=== PATIENT | male | born 1980 | race Caucasian/White ===

== ENCOUNTER 2017-01-17 12:23 | Emergency (ER) | payer BC ==
--- NOTE | 2017-01-17 15:15 | DIAGNOSTIC IMAGING REPORT ---
PROCEDURE: CT ABDOMEN/PELVIS W/O CONTRAST INDICATION: ABDOMINAL PAIN TECHNIQUE: Noncontrast axial images were obtained of the entire abdomen and pelvis with sagittal and coronal reformations. COMPARISON: None. FINDINGS: ABDOMEN: Lung base are clear. Heart size is normal. Liver, gallbladder, pancreas, spleen, adrenal glands and the left kidney are normal. There is a 3 mm left UVJ calculus but no hydronephrosis. There is a 1.5 mm nonobstructing right renal lower pole calculus. Normal abdominal aorta. Nonspecific bowel gas pattern. PELVIS: Normal appendix. Normal prostate and bladder. No pelvic mass, inflammatory changes or free fluid. Bilateral L4 spondylolysis with grade 1 L4- 5 anterolisthesis. IMPRESSION: 1. 3 mm of left UVJ calculus without hydronephrosis 2. 1.5 ml nonobstructing right renal calculus 3. 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 Results discussed with AMADOU Gallegos All CT scans at this facility use dose modulation, iterative reconstruction, and/or weight-based dosing when appropriate to reduce radiation dose to as low as reasonably achievable.
--- NOTE | 2017-01-17 15:17 | ED CLINICAL REPORT ---
Clinical Report - Physicians/Mid Levels [facility] [address] [place] [address] 01/17/2017 12:24 [id number] Time Seen: 12:46 Jan 17 2017. Arrived- By private vehicle. Historian- patient, family and significant other. HISTORY OF PRESENT ILLNESS Chief Complaint: FLANK PAIN. This started just prior to arrival and is still present. It is described as "pain". Quality not described as sharp and it is described as located in the left abdomen and the left flank. The patient has had nausea. No loss of appetite or vomiting. (patient presents with testicular pain on the left side, radiating to his flank. Reports a history of Reports nausea no emesis. Reports difficulty urinating since the incident. Patient is sexually active, here with his significant other, his . Denies any history of sexually transmitted diseases.). REVIEW OF SYSTEMS No constipation, black stools, pain with urination, urinary frequency or missed periods. No fever, headache, blurred vision, chest pain or difficulty breathing. No chills. He has had difficulty with urination. All systems otherwise negative, except as recorded above. PAST HISTORY Hyperlipidemia. Problems: Contusion. Anxiety Reaction. Bipolar Disorder. Depression. Sprain. Tetanus Status. Immunizations. Additional Surgeries: Right knee. Medications: Ambien Oral. LamoTRIgine Oral. KlonoPIN Oral. LaMICtal Oral 200mg daily. SEROquel Oral 300 mg, at bedtime. Allergies: Penicillins. SOCIAL HISTORY Smoker- current status unknown (vapes). Alcohol use. History of drug use: marijuana. Recently used drugs yesterday. ADDITIONAL NOTES The nursing notes have been reviewed. PHYSICAL EXAM Vital Signs: 01/17/2017 12:41 BP: 145/94. HR: 60. RR: 18. O2 saturation: 100%. Temp: 98.7 F. Pain level now: 9/10. Appearance: Alert. No acute distress. ENT: Ears normal. Neck: Normal inspection. CVS: Normal heart rate and rhythm. Heart sounds normal. Respiratory: No respiratory distress. Breath sounds normal. No decreased air movement. Abdomen: Soft. Mild tenderness in the suprapubic area. No organomegaly. No mass. Back: Normal inspection. No CVA tenderness. : Normal genitalia. Testes descended. No tenderness present or scrotal swelling. (chaperoned with Jonnathan MCGEE). Skin: No rash. Neuro: Oriented X 3. LABS, X-RAYS, AND EKG Abdominal CT: IMPRESSION: 1. 3 mm of left UVJ calculus without hydronephrosis 2. 1.5 ml nonobstructing right renal calculus 3. 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 Results discussed with Kimberly Rolle PAC All CT scans at this facility use dose modulation, iterative reconstruction, and/or weight-based dosing when appropriate to reduce radiation dose to as low as reasonably achievable. Electronically Final signed by:Abdoulaye Alvarado MD 01/17/2017 3:14:33 PM. Laboratory Tests: UA-Culture if indicated: (JENNIFER: 01/17/2017 13:55) ( FlgRcvd 01/17/2017 14:20) Final results Test Result Flag Units (Reference) URINE COLOR YELLOW URINE APPEARANCE SL CLOUDY URINE GLUCOSE NEGATIVE (NEGATIVE) URINE BILIRUBIN NEGATIVE (NEGATIVE) URINE KETONE NEGATIVE (NEGATIVE) URINE SPECIFIC GRAVITY >= 1.030 (1.010-1.030) URINE PH 6.0 (5.0-8.0) URINE PROTEIN 1+ (NEGATIVE) URINE UROBILINOGEN 0.2 EU/dL (0.2-1.0) URINE NITRITE NEGATIVE (NEGATIVE) URINE BLOOD 3+ (NEGATIVE) URINE LEUK ESTERASE TRACE (NEGATIVE) URINE RBC 75-100 rbc/hpf (0-1) URINE WBC 50-75 wbc/hpf (0-1) URINE EPITHELIAL CELLS 5-10 EPI/hpf (0-5) URINE BACTERIA MODERATE (2+ TO 3+) (NONE SEEN) URINE COMMENT CULTURE INDICATED URINE CULTURES ARE SET-UP BASED ON THE FOLLOWING CRITERIA:POSITIVE NITRITEPOSITIVE LEUKOCYTE ESTERASEGREATER THAN 10 WHITE BLOOD CELLSMODERATE (2+) OR GREATER BACTERIA CBC w Diff: (JENNIFER: 01/17/2017 13:00) ( [facility] 01/17/2017 13:27) Final results Test Result Flag Units (Reference) WHITE BLOOD COUNT 8.2 K/uL (4.5-11.5) RED BLOOD COUNT 4.78 M/uL (4.50-5.90) HEMOGLOBIN 14.6 gm/dL (13.5-17.5) HEMATOCRIT 43.0 % (41.0-53.0) MEAN CELL VOLUME 90 fL (80-100) MEAN CORPUSCULAR HGB 31 pg (26-34) MEAN CORPUSCULAR HGB CONC 34 g/dL (31-37) RED CELL DISTRIBUTION WIDTH 12.6 % (11.6-14.8) PLATELET COUNT 256 K/uL (150-400) NEUTROPHIL % 73.8 % (50-75) LYMPH % 18.7 L % (25-40) MONO % 6.3 % (3-14) EOSINOPHIL % 0.9 % (0-4) BASOPHIL % 0.3 % (0-2) CMP: (JENNIFER: 01/17/2017 13:00) ( MsgRcvd 01/17/2017 13:36) Final results Test Result Flag Units (Reference) GLUCOSE 113 H mg/dL (70-110) BUN 18 mg/dL (7-18) CREATININE 1.3 mg/dL (0.6-1.3) Estimated GFR >60 mL/min Estimated GFR- >60 mL/min Note: Persistent reduction over 3 months in eGFR<60 mL/min/1.73 m2 defines CKD. Patients with eGFR values>=60 mL/min/1.73 m2 may also have CKD if evidence ofpersistent proteinuria. Additional information may be foundat www.kidney.org. SODIUM 141 mmol/L (136-145) POTASSIUM 3.9 mmol/L (3.5-5.1) CHLORIDE 103 mmol/L (98-107) CARBON DIOXIDE 29 mmol/L (21-32) CALCIUM 9.2 mg/dL (8.5-10.1) TOTAL PROTEIN 7.7 g/dL (6.4-8.2) ALBUMIN 4.0 g/dL (3.3-5.0) BILIRUBIN, TOTAL 0.7 mg/dL (0.0-1.0) ALKALINE PHOSPHATASE 92 U/L (46-116) AST (SGOT) 20 U/L (15-37) ALT (SGPT) 37 U/L (12-78) . PROGRESS AND PROCEDURES Course of Care: Patient with signs of acute left flank pain, with relief of medication with Toradol, with nausea, hematuri, and bacteuria. Signs of cystitis aas well in setting of small nephrolithiasis. patient afebrile. No CVA tenderness. Abdomen is soft. NO signs of pyelo/ hydro. 01/17/2017 12:48 BP: 135/93. HR: 58. RR: 20. O2 saturation: 100%. Patient is stable. Symptoms better. Patient/family counseled. Disposition: Discharged. Condition: good. CLINICAL IMPRESSION Ureterolithiasis (single stone) in the left ureter. INSTRUCTIONS Drink plenty of fluids. Prescription Medications: Hydrocodone/APAP 7.5mg / 325mg: take 1 orally every 6 hours as needed for pain. Dispense twenty (20). No refill. Zofran (orally disintegrating tablets) 4 mg: take 1 orally every 12 hours for 3 days as needed for nausea Cipro 500 mg: take 1 tab orally every 12 hours for 10 days. Dispense twenty (20). No refills. Substitution is permissible. Flomax 0.4 mg: take 1 orally every 24 hours. Dispense ten (10). No refills. Substitution is permissible. Follow-up: Follow up with a specialist urology: [phone]. Understanding of the discharge instructions verbalized. (Electronically signed by Sadaf Rolle P.A.-C 01/17/2017 15:46) Addenda for RUBINA CORRAL VisitID: [id number] Date: 01/17/2017 01/17/2017 16:13 Clarified order with PA, Dispense 12 Zofran per RX DC (Electronically signed by Jonnathan Olson R.N. - 01/17/2017 16:13)
--- NOTE | 2017-01-17 15:17 | ED NURSING NOTES ---
Clinical Report - Nurses [facility] [address] [place] [address] 01/17/2017 12:24 Patient: RUBINA CORRAL TRIAGE Triage time 12:41. Acuity: LEVEL 3. Chief Complaint: URINARY RETENTION. Alert. No acute distress. SEPSIS SCREEN: Sepsis Screen: negative. Negative (no infection suspected/documented). --12:47 Syeda Thompson R.N. 12:41 01/17/17. BP: 145/94. HR: 60. RR: 18. O2 saturation: 100%. Temp: 98.7 F. Pain level now: 03/26. --12:47 Syeda Thompson R.N. 12:41 01/17/17. BP: 145/94. HR: 60. RR: 18. O2 saturation: 100%. Temp: 98.7 F. Pain level now: 03/26. --12:47 Syeda Thompson R.N. Weight: 88.4 kg stated. Height/Length: 72 inches Per Patient. BMI: 26.5. --12:47 Syeda Thompson R.N. Medications KlonoPIN Oral. LaMICtal Oral 200mg daily. SEROquel Oral 300 mg, at bedtime. --12:43 Syeda Thompson R.N. LamoTRIgine Oral. --12:44 Syeda Thompson R.N. Ambien Oral. --12:44 Syeda Thompson R.N. Medication/allergy information source: the patient. --12:47 Syeda Thompson R.N. Allergies Penicillins. --12:43 Syeda Thompson R.N. History Arrived by private vehicle. Historian: patient and family. Accompanied by family. Primary physician (annabelle). This started today. Onset. (Woke up today, "I felt like being kicked in the balls and back pain" Lt side). He has had testicular pain. ( Unable to urinate, per pt). Treatment HUMAN RESOURCES EXECUTIVE: None. PAST MEDICAL HX: Immunizations: status is unknown. SOCIAL HX: Smoker- current status unknown (vapes). Occasional alcohol use. History of drug use: marijuana. Recently used drugs yesterday. FALL RISK ASSESSMENT: Fall risk assessment completed. No fall risk identified. NUTRITIONAL RISK ASSESSMENT: The nutritional risk assessment revealed no deficiencies. FUNCTIONAL ASSESSMENT: Functional assessment: no impairments noted. LEARNING NEEDS ASSESSMENT: The learning needs assessment revealed no barriers. SKIN INTEGRITY ASSESSMENT: Skin integrity risk assessment completed. No skin integrity risk identified. --12:47 Syeda Thompson R.N. PROBLEMS: Contusion. Anxiety Reaction. Bipolar Disorder. Depression. Sprain. --12:44 Syeda Thompson R.N. ADDITIONAL SURGERIES: Right knee. --12:44 Syeda Thompson R.N. Interventions ID band on patient. To room. --12:47 Syeda Thompson R.N. PHYSICAL ASSESSMENT Ambulatory to room. Patient gowned. GENERAL / NEURO / PSYCH: Alert. Oriented X 4. Appears in pain and anxious. HEENT: Mucous membranes are pink. RESPIRATORY: Respirations not labored. CVS: Capillary refill less than 2 seconds. GI / : Abdominal tenderness in the suprapubic area and lower abdomen. ( unable to void since last night). SKIN: Skin is warm and dry. --12:48 Syeda Thompson R.N. NURSING PROGRESS NOTES Patient gowned. Head of bed elevated. Call light placed in reach. Side rails up x 2. Bed placed in lowest position. Brakes of bed on. Patient ready for evaluation. --12:48 Syeda Thompson R.N. 12:48 01/17/17. BP: 135/93 taken while lying. HR: 58. RR: 20. O2 saturation: 100%. --12:49 Syeda Thompson R.N. 12:55 01/17/2017 Site #1 started via IV in the right antecubital space with an 20g angiocath, with aseptic technique and good blood return; one attempt. Blood drawn: rainbow set. Labeled in the presence of the patient and sent to the lab. Saline lock flushed with saline. --13:43 Syeda Thompson R.N. 12:56 01/17/2017 Started bag #1 1000 mL IV Fluids IV NS (Saline); at 1000 mL/hr over 1 hour(s) via site #1 --13:43 Syeda Thompson R.N. 12:58 01/17/2017 Zofran (Ondansetron HCl) IVP 8 mg given over 1 minute(s) via site #1. Allergies verified and confirmed 5 rights. IV patency established. IV site checked: no pain, redness, or swelling. IV flushed thoroughly pre- and post-medication administration. IVP given by RN. --13:44 Syeda Thompson R.N. 13:00 01/17/2017 Toradol IVP 30 mg given over 1 minute(s) via site #1. Allergies verified and confirmed 5 rights. IV patency established. IV site checked: no pain, redness, or swelling. IV flushed thoroughly pre- and post-medication administration. IVP given by RN. --13:44 Syeda Thompson R.N. 13:29 01/17/17. Utility Locator provided for the genital exam by the physician. --13:29 Jonnathan Olson R.N. 14:02 01/17/2017 IV Fluids IV NS Discontinued: bag #1 infused. Total amount infused: 1000 mL. IV patency established. IV site checked: no pain, redness, or swelling. IV flushed thoroughly. --14:07 Jonnathan Olson R.N. 15:32 01/17/2017 Site #1 removed upon discharge. Catheter intact. Bandaid applied. --15:47 Syeda Thompson R.N. 15:37 01/17/2017 Levofloxacin PO 500 mg given. Allergies verified and confirmed 5 rights. --15:47 Syeda Thompson R.N. DISPOSITION / DISCHARGE 15:48 01/17/17. BP: 122/70. HR: 81. RR: 20. O2 saturation: 100%. Temp: deferred. Pain level now: 07/26. --15:48 Syeda Thompson R.N. 15:48 01/17/17. BP: 122/70. HR: 81. RR: 20. O2 saturation: 100%. Temp: deferred. Pain level now: 07/26. 14:00 01/17/17. BP: 133/69. HR: 63. RR: 18. O2 saturation: 100% on room air. 12:48 01/17/17. BP: 135/93 taken while lying. HR: 58. RR: 20. O2 saturation: 100%. 12:41 01/17/17. BP: 145/94. HR: 60. RR: 18. O2 saturation: 100%. Temp: 98.7 F. Pain level now: 03/26. --15:49 Syeda Thompson R.N. 15:45. Condition at departure: improved. No learning barriers present. Reviewed medication(s) side effects, precautions, dosing and course information. Prescription(s) given to the patient. Patient verbalized understanding. Written instructions provided in Jordanian. The patient was discharged home and accompanied by spouse. He left the Emergency Department ambulatory and via private vehicle. Spouse driving. Medication list reviewed and validated. --15:50 Syeda Thompson R.N. Locked/Released at 01/17/2017 18:30 by Syeda Thompson R.N.
--- NOTE | 2017-01-17 15:17 | ED NURSING NOTES ---
Clinical Report - Nurses [facility] [address] [place] [place] [address] 01/17/2017 12:24 Patient: RUBINA CORRAL TRIAGE Triage time 12:41. Acuity: LEVEL 3. Chief Complaint: URINARY RETENTION. Alert. No acute distress. SEPSIS SCREEN: Sepsis Screen: negative. Negative (no infection suspected/documented). --12:47 Syeda Thompson R.N. 12:41 01/17/17. BP: 145/94. HR: 60. RR: 18. O2 saturation: 100%. Temp: 98.7 F. Pain level now: 03/26. --12:47 Syeda Thompson R.N. 12:41 01/17/17. BP: 145/94. HR: 60. RR: 18. O2 saturation: 100%. Temp: 98.7 F. Pain level now: 03/26. --12:47 Syeda Thompson R.N. Weight: 88.4 kg stated. Height/Length: 72 inches Per Patient. BMI: 26.5. --12:47 Syeda Thompson R.N. Medications KlonoPIN Oral. LaMICtal Oral 200mg daily. SEROquel Oral 300 mg, at bedtime. --12:43 Syeda Thompson R.N. LamoTRIgine Oral. --12:44 Syeda Thompson R.N. Ambien Oral. --12:44 Syeda Thompson R.N. Medication/allergy information source: the patient. --12:47 Syeda Thompson R.N. Allergies Penicillins. --12:43 Syeda Thompson R.N. History Arrived by private vehicle. Historian: patient and family. Accompanied by family. Primary physician (annabelle). This started today. Onset. (Woke up today, "I felt like being kicked in the balls and back pain" Lt side). He has had testicular pain. ( Unable to urinate, per pt). Treatment ALGEBRA TUTOR: None. PAST MEDICAL HX: Immunizations: status is unknown. SOCIAL HX: Smoker- current status unknown (vapes). Occasional alcohol use. History of drug use: marijuana. Recently used drugs yesterday. FALL RISK ASSESSMENT: Fall risk assessment completed. No fall risk identified. NUTRITIONAL RISK ASSESSMENT: The nutritional risk assessment revealed no deficiencies. FUNCTIONAL ASSESSMENT: Functional assessment: no impairments noted. LEARNING NEEDS ASSESSMENT: The learning needs assessment revealed no barriers. SKIN INTEGRITY ASSESSMENT: Skin integrity risk assessment completed. No skin integrity risk identified. --12:47 Syeda Thompson R.N. PROBLEMS: Contusion. Anxiety Reaction. Bipolar Disorder. Depression. Sprain. --12:44 Syeda Thompson R.N. ADDITIONAL SURGERIES: Right knee. --12:44 Syeda Thompson R.N. Interventions ID band on patient. To room. --12:47 Syeda Thompson R.N. PHYSICAL ASSESSMENT Ambulatory to room. Patient gowned. GENERAL / NEURO / PSYCH: Alert. Oriented X 4. Appears in pain and anxious. HEENT: Mucous membranes are pink. RESPIRATORY: Respirations not labored. CVS: Capillary refill less than 2 seconds. GI / : Abdominal tenderness in the suprapubic area and lower abdomen. ( unable to void since last night). SKIN: Skin is warm and dry. --12:48 Syeda Thompson R.N. NURSING PROGRESS NOTES Patient gowned. Head of bed elevated. Call light placed in reach. Side rails up x 2. Bed placed in lowest position. Brakes of bed on. Patient ready for evaluation. --12:48 Syeda Thompson R.N. 12:48 01/17/17. BP: 135/93 taken while lying. HR: 58. RR: 20. O2 saturation: 100%. --12:49 Syeda Thompson R.N. 12:55 01/17/2017 Site #1 started via IV in the right antecubital space with an 20g angiocath, with aseptic technique and good blood return; one attempt. Blood drawn: rainbow set. Labeled in the presence of the patient and sent to the lab. Saline lock flushed with saline. --13:43 Syeda Thompson R.N. 12:56 01/17/2017 Started bag #1 1000 mL IV Fluids IV NS (Saline); at 1000 mL/hr over 1 hour(s) via site #1 --13:43 Syeda Thompson R.N. 12:58 01/17/2017 Zofran (Ondansetron HCl) IVP 8 mg given over 1 minute(s) via site #1. Allergies verified and confirmed 5 rights. IV patency established. IV site checked: no pain, redness, or swelling. IV flushed thoroughly pre- and post-medication administration. IVP given by RN. --13:44 Syeda Thompson R.N. 13:00 01/17/2017 Toradol IVP 30 mg given over 1 minute(s) via site #1. Allergies verified and confirmed 5 rights. IV patency established. IV site checked: no pain, redness, or swelling. IV flushed thoroughly pre- and post-medication administration. IVP given by RN. --13:44 Syeda Thopmson R.N. 13:29 01/17/17. Distribution Dispatcher provided for the genital exam by the physician. --13:29 Jonnathan Olson R.N. 14:02 01/17/2017 IV Fluids IV NS Discontinued: bag #1 infused. Total amount infused: 1000 mL. IV patency established. IV site checked: no pain, redness, or swelling. IV flushed thoroughly. --14:07 Jonnathan Olson R.N. 15:32 01/17/2017 Site #1 removed upon discharge. Catheter intact. Bandaid applied. --15:47 Syeda Thompson R.N. 15:37 01/17/2017 Levofloxacin PO 500 mg given. Allergies verified and confirmed 5 rights. --15:47 Syeda Thompson R.N. DISPOSITION / DISCHARGE 15:48 01/17/17. BP: 122/70. HR: 81. RR: 20. O2 saturation: 100%. Temp: deferred. Pain level now: 07/26. --15:48 Syeda Thompson R.N. 15:48 01/17/17. BP: 122/70. HR: 81. RR: 20. O2 saturation: 100%. Temp: deferred. Pain level now: 07/26. 14:00 01/17/17. BP: 133/69. HR: 63. RR: 18. O2 saturation: 100% on room air. 12:48 01/17/17. BP: 135/93 taken while lying. HR: 58. RR: 20. O2 saturation: 100%. 12:41 01/17/17. BP: 145/94. HR: 60. RR: 18. O2 saturation: 100%. Temp: 98.7 F. Pain level now: 03/26. --15:49 Syeda Thompson R.N. 15:45. Condition at departure: improved. No learning barriers present. Reviewed medication(s) side effects, precautions, dosing and course information. Prescription(s) given to the patient. Patient verbalized understanding. Written instructions provided in [place]. The patient was discharged home and accompanied by spouse. He left the Emergency Department ambulatory and via private vehicle. Spouse driving. Medication list reviewed and validated. --15:50 Syeda Thompson R.N. Locked/Released at 01/17/2017 18:30 by Syeda Thompson R.N.
--- NOTE | 2017-01-17 15:17 | ED ORDER SUMMARY ---
..... Patient: RUBINA CORRAL OrderSheet [facility] VisitID: [id number] [address] [place] [address] 36y, M Registration Date/Time: 01/17/2017 ORDER SHEET Weight: 88.4 kg (stated) Allergies: Penicillins GENERAL ORDERS: CBC w Diff Urgent (12:46 01/17/2017 EKoroleva P.A.-C) (Ack 12:46 PWeiler ER Tech1) (13:44 SRoberts R.N.) CMP Urgent (12:46 01/17/2017 EKoroleva P.A.-C) (Ack 12:46 PWeiler ER Tech1) (13:45 SRoberts R.N.) UA-Culture if indicated Urgent (12:46 01/17/2017 EKoroleva P.A.-C) (Ack 12:46 PWeiler ER Tech1) (13:58 PWeiler ER Tech1) GC/Chlamydia, Urine (Urine, Clean Catch) (c) Urgent (12:51 01/17/2017 EKoroleva P.A.-C) (Ack 12:52 PWeiler ER Tech1) (13:58 PWeiler ER Tech1) CT Abd/Pel wo Cont Urgent (14:16 01/17/2017 EKoroleva P.A.-C) (Ack 14:19 PWeiler ER Tech1) (14:50 PWeiler ER Tech1) - (urinary strainer) (15:18 01/17/2017 EKoroleva P.A.-C) (Ack 15:29 PWeiler ER Tech1) (15:47 SRoberts R.N.) MEDICATION ORDERS: Levofloxacin PO 500 mg (NOW) (15:23 01/17/2017 EKoroleva P.A.-C) (15:47 SRoberts R.N.) IV FLUIDS: IV NS : initial bolus 1000 mL (1000 mL/hr), then 1000 mL/hr for X1 (NOW); Ashutosh (12:45 01/17/2017 EKoroleva P.A.-C) (Ack 12:50 SRoberts R.N.) (13:43 SRoberts R.N.) Toradol IV 30 mg (NOW) (12:45 01/17/2017 EKoroleharmeet P.A.-C) (Ack 12:50 SRoberts R.N.) (13:44 SRoberts R.N.) Zofran IV 8 mg (NOW) (12:46 01/17/2017 EKoroleva P.A.-C) (Ack 12:50 SRoberts R.N.) (13:44 SRoberts R.N.) ORDER SHEET NOTES: [Electronically signed by Sadaf RolleAGabriela-C (15:46 01/17/2017)] [Electronically signed by Syeda Thompson R.N. (18:30 01/17/2017)] [Electronically locked/signed by Syeda Thompson R.N. (18:30 01/17/2017)]
--- NOTE | 2017-01-17 15:17 | ED ORDER SUMMARY ---
..... Patient: RUBINA CORRAL OrderSheet [facility] VisitID: [id number] [address] [place] [address] 36y, M Registration Date/Time: 01/17/2017 ORDER SHEET Weight: 88.4 kg (stated) Allergies: Penicillins GENERAL ORDERS: CBC w Diff Urgent (12:46 01/17/2017 EKoroleva P.A.-C) (Ack 12:46 PWeiler ER Tech1) (13:44 SRoberts R.N.) CMP Urgent (12:46 01/17/2017 EKoroleva P.A.-C) (Ack 12:46 PWeiler ER Tech1) (13:45 SRoberts R.N.) UA-Culture if indicated Urgent (12:46 01/17/2017 EKoroleva P.A.-C) (Ack 12:46 PWeiler ER Tech1) (13:58 PWeiler ER Tech1) GC/Chlamydia, Urine (Urine, Clean Catch) (c) Urgent (12:51 01/17/2017 EKoroleva P.A.-C) (Ack 12:52 PWeiler ER Tech1) (13:58 PWeiler ER Tech1) CT Abd/Pel wo Cont Urgent (14:16 01/17/2017 EKoroleva P.A.-C) (Ack 14:19 PWeiler ER Tech1) (14:50 PWeiler ER Tech1) - (urinary strainer) (15:18 01/17/2017 EKoroleva P.A.-C) (Ack 15:29 PWeiler ER Tech1) (15:47 SRoberts R.N.) MEDICATION ORDERS: Levofloxacin PO 500 mg (NOW) (15:23 01/17/2017 EKoroleva P.A.-C) (15:47 SRoberts R.N.) IV FLUIDS: IV NS : initial bolus 1000 mL (1000 mL/hr), then 1000 mL/hr for X1 (NOW); Ashutosh (12:45 01/17/2017 EKoroleva P.A.-C) (Ack 12:50 SRoberts R.N.) (13:43 SRoberts R.N.) Toradol IV 30 mg (NOW) (12:45 01/17/2017 EKoroleharmeet P.A.-C) (Ack 12:50 SRoberts R.N.) (13:44 SRoberts R.N.) Zofran IV 8 mg (NOW) (12:46 01/17/2017 EKoroleva P.A.-C) (Ack 12:50 SRoberts R.N.) (13:44 SRoberts R.N.) ORDER SHEET NOTES: [Electronically signed by Sadaf RolleAGabriela-C (15:46 01/17/2017)] [Electronically signed by Syeda Thompson R.N. (18:30 01/17/2017)] [Electronically locked/signed by Syeda Thompson R.N. (18:30 01/17/2017)]
--- NOTE | 2017-01-17 15:17 | ED CLINICAL REPORT ---
Clinical Report - Physicians/Mid Levels [facility] [address] [place] [address] 01/17/2017 12:24 [id number] Time Seen: 12:46 Jan 17 2017. Arrived- By private vehicle. Historian- patient, family and significant other. HISTORY OF PRESENT ILLNESS Chief Complaint: FLANK PAIN. This started just prior to arrival and is still present. It is described as "pain". Quality not described as sharp and it is described as located in the left abdomen and the left flank. The patient has had nausea. No loss of appetite or vomiting. (patient presents with testicular pain on the left side, radiating to his flank. Reports a history of Reports nausea no emesis. Reports difficulty urinating since the incident. Patient is sexually active, here with his significant other, his . Denies any history of sexually transmitted diseases.). REVIEW OF SYSTEMS No constipation, black stools, pain with urination, urinary frequency or missed periods. No fever, headache, blurred vision, chest pain or difficulty breathing. No chills. He has had difficulty with urination. All systems otherwise negative, except as recorded above. PAST HISTORY Hyperlipidemia. Problems: Contusion. Anxiety Reaction. Bipolar Disorder. Depression. Sprain. Tetanus Status. Immunizations. Additional Surgeries: Right knee. Medications: Ambien Oral. LamoTRIgine Oral. KlonoPIN Oral. LaMICtal Oral 200mg daily. SEROquel Oral 300 mg, at bedtime. Allergies: Penicillins. SOCIAL HISTORY Smoker- current status unknown (vapes). Alcohol use. History of drug use: marijuana. Recently used drugs yesterday. ADDITIONAL NOTES The nursing notes have been reviewed. PHYSICAL EXAM Vital Signs: 01/17/2017 12:41 BP: 145/94. HR: 60. RR: 18. O2 saturation: 100%. Temp: 98.7 F. Pain level now: 9/10. Appearance: Alert. No acute distress. ENT: Ears normal. Neck: Normal inspection. CVS: Normal heart rate and rhythm. Heart sounds normal. Respiratory: No respiratory distress. Breath sounds normal. No decreased air movement. Abdomen: Soft. Mild tenderness in the suprapubic area. No organomegaly. No mass. Back: Normal inspection. No CVA tenderness. : Normal genitalia. Testes descended. No tenderness present or scrotal swelling. (chaperoned with Jonnathan MCGEE). Skin: No rash. Neuro: Oriented X 3. LABS, X-RAYS, AND EKG Abdominal CT: IMPRESSION: 1. 3 mm of left UVJ calculus without hydronephrosis 2. 1.5 ml nonobstructing right renal calculus 3. 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 Results discussed with Kimberly Rolle PAC All CT scans at this facility use dose modulation, iterative reconstruction, and/or weight-based dosing when appropriate to reduce radiation dose to as low as reasonably achievable. Electronically Final signed by:Abdoulaye Alvarado MD 01/17/2017 3:14:33 PM. Laboratory Tests: UA-Culture if indicated: (JENNIFER: 01/17/2017 13:55) ( GagRcvd 01/17/2017 14:20) Final results Test Result Flag Units (Reference) URINE COLOR YELLOW URINE APPEARANCE SL CLOUDY URINE GLUCOSE NEGATIVE (NEGATIVE) URINE BILIRUBIN NEGATIVE (NEGATIVE) URINE KETONE NEGATIVE (NEGATIVE) URINE SPECIFIC GRAVITY >= 1.030 (1.010-1.030) URINE PH 6.0 (5.0-8.0) URINE PROTEIN 1+ (NEGATIVE) URINE UROBILINOGEN 0.2 EU/dL (0.2-1.0) URINE NITRITE NEGATIVE (NEGATIVE) URINE BLOOD 3+ (NEGATIVE) URINE LEUK ESTERASE TRACE (NEGATIVE) URINE RBC 75-100 rbc/hpf (0-1) URINE WBC 50-75 wbc/hpf (0-1) URINE EPITHELIAL CELLS 5-10 EPI/hpf (0-5) URINE BACTERIA MODERATE (2+ TO 3+) (NONE SEEN) URINE COMMENT CULTURE INDICATED URINE CULTURES ARE SET-UP BASED ON THE FOLLOWING CRITERIA:POSITIVE NITRITEPOSITIVE LEUKOCYTE ESTERASEGREATER THAN 10 WHITE BLOOD CELLSMODERATE (2+) OR GREATER BACTERIA CBC w Diff: (JENNIFER: 01/17/2017 13:00) ( [facility] 01/17/2017 13:27) Final results Test Result Flag Units (Reference) WHITE BLOOD COUNT 8.2 K/uL (4.5-11.5) RED BLOOD COUNT 4.78 M/uL (4.50-5.90) HEMOGLOBIN 14.6 gm/dL (13.5-17.5) HEMATOCRIT 43.0 % (41.0-53.0) MEAN CELL VOLUME 90 fL (80-100) MEAN CORPUSCULAR HGB 31 pg (26-34) MEAN CORPUSCULAR HGB CONC 34 g/dL (31-37) RED CELL DISTRIBUTION WIDTH 12.6 % (11.6-14.8) PLATELET COUNT 256 K/uL (150-400) NEUTROPHIL % 73.8 % (50-75) LYMPH % 18.7 L % (25-40) MONO % 6.3 % (3-14) EOSINOPHIL % 0.9 % (0-4) BASOPHIL % 0.3 % (0-2) CMP: (JENNIFER: 01/17/2017 13:00) ( MsgRcvd 01/17/2017 13:36) Final results Test Result Flag Units (Reference) GLUCOSE 113 H mg/dL (70-110) BUN 18 mg/dL (7-18) CREATININE 1.3 mg/dL (0.6-1.3) Estimated GFR >60 mL/min Estimated GFR- >60 mL/min Note: Persistent reduction over 3 months in eGFR<60 mL/min/1.73 m2 defines CKD. Patients with eGFR values>=60 mL/min/1.73 m2 may also have CKD if evidence ofpersistent proteinuria. Additional information may be foundat www.kidney.org. SODIUM 141 mmol/L (136-145) POTASSIUM 3.9 mmol/L (3.5-5.1) CHLORIDE 103 mmol/L (98-107) CARBON DIOXIDE 29 mmol/L (21-32) CALCIUM 9.2 mg/dL (8.5-10.1) TOTAL PROTEIN 7.7 g/dL (6.4-8.2) ALBUMIN 4.0 g/dL (3.3-5.0) BILIRUBIN, TOTAL 0.7 mg/dL (0.0-1.0) ALKALINE PHOSPHATASE 92 U/L (46-116) AST (SGOT) 20 U/L (15-37) ALT (SGPT) 37 U/L (12-78) . PROGRESS AND PROCEDURES Course of Care: Patient with signs of acute left flank pain, with relief of medication with Toradol, with nausea, hematuri, and bacteuria. Signs of cystitis aas well in setting of small nephrolithiasis. patient afebrile. No CVA tenderness. Abdomen is soft. NO signs of pyelo/ hydro. 01/17/2017 12:48 BP: 135/93. HR: 58. RR: 20. O2 saturation: 100%. Patient is stable. Symptoms better. Patient/family counseled. Disposition: Discharged. Condition: good. CLINICAL IMPRESSION Ureterolithiasis (single stone) in the left ureter. INSTRUCTIONS Drink plenty of fluids. Prescription Medications: Hydrocodone/APAP 7.5mg / 325mg: take 1 orally every 6 hours as needed for pain. Dispense twenty (20). No refill. Zofran (orally disintegrating tablets) 4 mg: take 1 orally every 12 hours for 3 days as needed for nausea Cipro 500 mg: take 1 tab orally every 12 hours for 10 days. Dispense twenty (20). No refills. Substitution is permissible. Flomax 0.4 mg: take 1 orally every 24 hours. Dispense ten (10). No refills. Substitution is permissible. Follow-up: Follow up with a specialist urology: [phone]. Understanding of the discharge instructions verbalized. (Electronically signed by Sadaf Rolle P.A.-C 01/17/2017 15:46) Addenda for RUBINA CORRAL VisitID: [id number] Date: 01/17/2017 01/17/2017 16:13 Clarified order with PA, Dispense 12 Zofran per RX DC (Electronically signed by Jonnathan Olson R.N. - 01/17/2017 16:13)
--- NOTE | 2017-01-17 18:30 | ED MED RECONCILIATION SUMMARY ---
Patient: RUBINA CORRAL Medication Reconciliation Report [facility] VisitID: [id number] [address] [place] [place] [address] 36y, M Registration Date/Time: 01/17/2017 Weight: 88.4 kg Height/Length: 72 in. BMI: 26.5 ALLERGIES: Penicillins The patient's Home Medications are listed below: THE FOLLOWING MEDICATIONS NEED TO BE RECONCILED: Ambien Oral KlonoPIN Oral LaMICtal Oral 200mg daily LamoTRIgine Oral SEROquel Oral 300 mg, at bedtime The source(s) of the original Home Medication information: patient The following Medications were given to the patient in the Emergency Department: IV NS IV Fluids bolus 0, then 1000 mL/hr, administered: 01/17/2017 12:56:00 PM Zofran [IVP] IVP 8 mg, administered: 01/17/2017 12:58:00 PM Toradol [IVP] IVP 30 mg, administered: 01/17/2017 1:00:00 PM Levofloxacin [PO] PO 500 mg, administered: 01/17/2017 3:37:00 PM The following Medications were prescribed to the patient: Hydrocodone/APAP 7.5mg / 325mg: take 1 orally every 6 hours as needed for pain. Dispense twenty (20). No refill. -- Sadaf Rolle, P.A.-C Zofran (orally disintegrating tablets) 4 mg: take 1 orally every 12 hours for 3 days as needed for nausea -- Sadaf Rolle, P.A.-C Cipro 500 mg: take 1 tab orally every 12 hours for 10 days. Dispense twenty (20). No refills. Substitution is permissible. -- Sadaf Rolle, P.A.-C Flomax 0.4 mg: take 1 orally every 24 hours. Dispense ten (10). No refills. Substitution is permissible. -- Sadaf Rolle, P.A.-C
--- NOTE | 2017-01-17 18:30 | ED DISCHARGE INSTRUCTIONS ---
Patient: RUBINA CORRAL General Instructions [facility] VisitID: [id number] [place] [address] 36y, M Registration Date/Time: 01/17/2017 Ureterolithiasis (single stone) in the left ureter. INSTRUCTIONS Drink plenty of fluids. Prescription Medications: Hydrocodone/APAP 7.5mg / 325mg: take 1 orally every 6 hours as needed for pain. Dispense twenty (20). No refill. Zofran (orally disintegrating tablets) 4 mg: take 1 orally every 12 hours for 3 days as needed for nausea Cipro 500 mg: take 1 tab orally every 12 hours for 10 days. Dispense twenty (20). No refills. Substitution is permissible. Flomax 0.4 mg: take 1 orally every 24 hours. Dispense ten (10). No refills. Substitution is permissible. Follow-up: Follow up with a specialist urology: [phone]. Understanding of the discharge instructions verbalized. ADDITIONAL INFORMATION Kidney Stone (W/ Colic) The sharp cramping pain and nausea/vomiting that you have is due to a small stone which has formed in the kidney and is now passing down a narrow tube (ureter) on its way to your bladder. Once it reaches your bladder, the pain will stop. The stone may pass in your urine stream in one piece. [The size may be 1/16" to 1/4" (1-6mm)]. Or, the stone may also break up into delores fragments which you may not even notice. Once you have had a kidney stone, you are at risk for developing another one in the future. Home Care: Drink plenty of fluids (at least 8 to 10 glasses of water a day). Most stones will pass on their own, but may take from a few hours to a few days. Sometimes the stone is too large to pass by itself and special methods will have to be used to remove the stone. Each time you urinate, do so in a jar. Pour the urine from the jar through the strainer and into the toilet. Continue doing this until 24 hours after your pain stops. By then, if there was a kidney stone, it should pass from your bladder. Some stones dissolve into sand-like particles and pass right through the strainer. In that case, you wont ever see a stone. Save any stone that you find in the strainer and bring it to your doctor for analysis. It may be possible to prevent certain types of stones from forming. Therefore, it is important to know what kind of stone you have. Try to stay as active as possible since this will help the stone pass. Do not stay in bed unless your pain prevents you from getting up. You may notice a red, pink or brown color to your urine. This is normal while passing a kidney stone. Follow Up with your doctor or return to this facility if the pain lasts more than 48 hours. Get Prompt Medical Attention if any of the following occur: Pain that is not controlled by the medicine given Repeated vomiting or unable to keep down fluids Weakness, dizziness or fainting Fever of 100.4F (38C) or higher, or as directed by your healthcare provider Passage of solid red or brown urine (can't see through it) or urine with lots of blood clots Unable to pass urine for 8 hours and increasing bladder pressure Blood In The Urine Blood in the urine ("hematuria") has many possible causes. If it occurs after an injury (such as a car accident or fall), it is most often a sign of bruising to the kidney or bladder. Common medical causes of blood in the urine include urinary tract infection, kidney stone, inflammation, tumors, or certain other diseases of the kidney or bladder. Menstruation can cause blood to appear in the urine sample, although it is not coming from the urinary tract. If only a trace amount of blood is present, it will show up on the urine test, even though the urine may be yellow and not pink or red. This may occur with any of the above conditions, as well as heavy exercise or high fever. In this case, your doctor may want to repeat the urine test on another day. This will show if the blood is still present. If so, then other tests can be done to find out the cause. Home Care: If your urine does not appear bloody (pink, brown or red) then you do not need to restrict your activity in any way. If you can see blood in your urine, rest and avoid heavy exertion until your next exam. Do not use aspirin or anti-inflammatory medicine like ibuprofen (Motrin, Advil) or naproxen (Naprosyn, Aleve). These thin the blood and may increase bleeding. Follow Up with your doctor or as advised by our staff. If you were injured and had blood in your urine, you should have a repeat urine test in 1-2 days. Contact your doctor or return to this facility for this test. [NOTE: A radiologist will review any X-rays that were taken. We will notify you of any new findings that may affect your care.] Get Prompt Medical Attention if any of the following occur: Bright red blood or blood clots in the urine (if a new symptom) Weakness, dizziness or fainting New groin, abdominal or back pain Fever of 100.4F (38C) or higher, or as directed by your healthcare provider Repeated vomiting Bleeding from nose, gums or easy bruising Hydrocodone Bitartrate, Acetaminophen Oral tablet What is this medicine? ACETAMINOPHEN; HYDROCODONE (a set a ANDERSON chacho fen; latisha droe KOE done) is a pain reliever. It is used to treat mild to moderate pain. How should I use this medicine? Take this medicine by mouth. Swallow it with a full glass of water. Follow the directions on the prescription label. If the medicine upsets your stomach, take the medicine with food or milk. Do not take more than you are told to take. Talk to your hostage negotiator regarding the use of this medicine in children. This medicine is not approved for use in children. What side effects may I notice from receiving this medicine? Side effects that you should report to your doctor or health rn intensive care unit as soon as possible: allergic reactions like skin rash, itching or hives, swelling of the face, lips, or tongue breathing problems confusion feeling faint or lightheaded, falls stomach pain yellowing of the eyes or skin Side effects that usually do not require medical attention (report to your doctor or health rn intensive care unit if they continue or are bothersome): nausea, vomiting stomach upset What may interact with this medicine? alcohol antihistamines isoniazid medicines for depression, anxiety, or psychotic disturbances medicines for sleep muscle relaxants naltrexone narcotic medicines (opiates) for pain phenobarbital ritonavir tramadol What if I miss a dose? If you miss a dose, take it as soon as you can. If it is almost time for your next dose, take only that dose. Do not take double or extra doses. Where should I keep my medicine? Keep out of the reach of children. This medicine can be abused. Keep your medicine in a safe place to protect it from theft. Do not share this medicine with anyone. Selling or giving away this medicine is dangerous and against the law. Store at room temperature between 15 and 30 degrees C (59 and 86 degrees F). Protect from light. Keep container tightly closed. Throw away any unused medicine after the expiration date. Discard unused medicine and used packaging carefully. Pets and children can be harmed if they find used or lost packages. What should I tell my health care provider before I take this medicine? They need to know if you have any of these conditions: brain tumor Crohn's disease, inflammatory bowel disease, or ulcerative colitis drink more than 3 alcohol-containing drinks per day drug abuse or addiction head injury heart or circulation problems kidney disease or problems going to the bathroom liver disease lung disease, asthma, or breathing problems an unusual or allergic reaction to acetaminophen, hydrocodone, other opioid analgesics, other medicines, foods, dyes, or preservatives or trying to get breast-feeding What should I watch for while using this medicine? Tell your doctor or health rn intensive care unit if your pain does not go away, if it gets worse, or if you have new or a different type of pain. You may develop tolerance to the medicine. Tolerance means that you will need a higher dose of the medicine for pain relief. Tolerance is normal and is expected if you take the medicine for a long time. Do not suddenly stop taking your medicine because you may develop a severe reaction. Your body becomes used to the medicine. This does NOT mean you are addicted. Addiction is a behavior related to getting and using a drug for a non-medical reason. If you have pain, you have a medical reason to take pain medicine. Your doctor will tell you how much medicine to take. If your doctor wants you to stop the medicine, the dose will be slowly lowered over time to avoid any side effects. You may get drowsy or dizzy when you first start taking the medicine or change doses. Do not drive, use machinery, or do anything that may be dangerous until you know how the medicine affects you. Stand or sit up slowly. There are different types of narcotic medicines (opiates) for pain. If you take more than one type at the same time, you may have more side effects. Give your health care provider a list of all medicines you use. Your doctor will tell you how much medicine to take. Do not take more medicine than directed. Call emergency for help if you have problems breathing. The medicine will cause constipation. Try to have a bowel movement at least every 2 to 3 days. If you do not have a bowel movement for 3 days, call your doctor or health rn intensive care unit. Too much acetaminophen can be very dangerous. Do not take Tylenol (acetaminophen) or medicines that contain acetaminophen with this medicine. Many non-prescription medicines contain acetaminophen. Always read the labels carefully. Ondansetron Oral disintegrating tablet What is this medicine? ONDANSETRON (on TIKA se tomeka) is used to treat nausea and vomiting caused by chemotherapy. It is also used to prevent or treat nausea and vomiting after surgery. How should I use this medicine? These tablets are made to dissolve in the mouth. Do not try to push the tablet through the foil backing. With dry hands, peel away the foil backing and gently remove the tablet. Place the tablet in the mouth and allow it to dissolve, then swallow. While you may take these tablets with water, it is not necessary to do so. Talk to your hostage negotiator regarding the use of this medicine in children. Special care may be needed. What side effects may I notice from receiving this medicine? Side effects that you should report to your doctor or health rn intensive care unit as soon as possible: allergic reactions like skin rash, itching or hives, swelling of the face, lips, or tongue breathing problems dizziness fast or irregular heartbeat feeling faint or lightheaded, falls fever and chills swelling of the hands and feet tightness in the chest Side effects that usually do not require medical attention (report to your doctor or health rn intensive care unit if they continue or are bothersome): constipation or diarrhea headache What may interact with this medicine? Do not take this medicine with any of the following medications: -apomorphine -cisapride -dofetilide -dronedarone -pimozide -thioridazine -ziprasidone This medicine may also interact with the following medications: -carbamazepine -phenytoin -rifampicin -tramadol -other medicines that prolong the QT interval (cause an abnormal heart rhythm) What if I miss a dose? If you miss a dose, take it as soon as you can. If it is almost time for your next dose, take only that dose. Do not take double or extra doses. Where should I keep my medicine? Keep out of the reach of children. Store between 2 and 30 degrees C (36 and 86 degrees F). Throw away any unused medicine after the expiration date. What should I tell my health care provider before I take this medicine? They need to know if you have any of these conditions: heart disease history of irregular heartbeat liver disease low levels of magnesium or potassium in the blood an unusual or allergic reaction to ondansetron, granisetron, other medicines, foods, dyes, or preservatives or trying to get breast-feeding What should I watch for while using this medicine? Check with your doctor or health rn intensive care unit as soon as you can if you have any sign of an allergic reaction. You have been given the following additional information: Kidney Stone W/ Colic Hematuria Hydrocodone Bitartrate, Acetaminophen Oral tablet Ondansetron Oral disintegrating tablet (Electronically signed by Saadf Rolle P.A.-C 01/17/2017 15:46)
--- NOTE | 2017-01-17 18:30 | ED MAR SUMMARY ---
..... Medication Administration Record [facility] [address] [place] [address] Patient: RUBINA OCRRAL Visit ID: [id number] 36y, M Weight: 88.4 kg Height/Length: 72 in BMI: 26.5 ALLERGIES: Penicillins Start 12:56 01/17/2017 Syeda Thompson R.N., Stop 14:02 01/17/2017 Jonnathan Olson R.N. Medication Administered: IV NS (SALINE), Dose: IV Fluids over 1 hour(s), Rate: 1000 mL/hr, Dispensed: 1000 mL bag, Site: #1 right AC. Medication Ordered: IV NS : initial bolus 1000 mL (1000 mL/hr), then 1000 mL/hr for X1 (NOW); Ashutosh. Given 12:58 01/17/2017 Syeda Thompson R.N. Medication Administered: ZOFRAN [IVP] (ONDANSETRON HCL), Dose: 8 mg IVP over 1 minute(s), Site: #1 right AC. Medication Ordered: Zofran IV 8 mg (NOW). Given 13:00 01/17/2017 Syeda Thompson R.N. Medication Administered: TORADOL [IVP], Dose: 30 mg IVP over 1 minute(s), Site: #1 right AC. Medication Ordered: Toradol IV 30 mg (NOW). Given 15:37 01/17/2017 Syeda Thompson R.N. Medication Administered: LEVOFLOXACIN [PO], Dose: 500 mg PO. Medication Ordered: Levofloxacin PO 500 mg (NOW).
--- NOTE | 2017-01-17 18:30 | ED MED RECONCILIATION SUMMARY ---
Patient: RUBINA CORRAL Medication Reconciliation Report [facility] VisitID: [id number] [address] [place] [place] [address] 36y, M Registration Date/Time: 01/17/2017 Weight: 88.4 kg Height/Length: 72 in. BMI: 26.5 ALLERGIES: Penicillins The patient's Home Medications are listed below: THE FOLLOWING MEDICATIONS NEED TO BE RECONCILED: Ambien Oral KlonoPIN Oral LaMICtal Oral 200mg daily LamoTRIgine Oral SEROquel Oral 300 mg, at bedtime The source(s) of the original Home Medication information: patient The following Medications were given to the patient in the Emergency Department: IV NS IV Fluids bolus 0, then 1000 mL/hr, administered: 01/17/2017 12:56:00 PM Zofran [IVP] IVP 8 mg, administered: 01/17/2017 12:58:00 PM Toradol [IVP] IVP 30 mg, administered: 01/17/2017 1:00:00 PM Levofloxacin [PO] PO 500 mg, administered: 01/17/2017 3:37:00 PM The following Medications were prescribed to the patient: Hydrocodone/APAP 7.5mg / 325mg: take 1 orally every 6 hours as needed for pain. Dispense twenty (20). No refill. -- Sadaf Rolle, P.A.-C Zofran (orally disintegrating tablets) 4 mg: take 1 orally every 12 hours for 3 days as needed for nausea -- Sadaf Rolle, P.A.-C Cipro 500 mg: take 1 tab orally every 12 hours for 10 days. Dispense twenty (20). No refills. Substitution is permissible. -- Sadaf Rolle, P.A.-C Flomax 0.4 mg: take 1 orally every 24 hours. Dispense ten (10). No refills. Substitution is permissible. -- Sadaf Rolle, P.A.-C
--- NOTE | 2017-01-17 18:30 | ED MAR SUMMARY ---
..... Medication Administration Record [facility] [address] [place] [address] Patient: RUBINA CORRAL Visit ID: [id number], M Weight: 88.4 kg Height/Length: 72 in BMI: 26.5 ALLERGIES: Penicillins Start 12:56 01/17/2017 Syeda Thompson R.N., Stop 14:02 01/17/2017 Jonnathan Olson R.N. Medication Administered: IV NS (SALINE), Dose: IV Fluids over 1 hour(s), Rate: 1000 mL/hr, Dispensed: 1000 mL bag, Site: #1 right AC. Medication Ordered: IV NS : initial bolus 1000 mL (1000 mL/hr), then 1000 mL/hr for X1 (NOW); Ashutosh. Given 12:58 01/17/2017 Syeda Thompson R.N. Medication Administered: ZOFRAN [IVP] (ONDANSETRON HCL), Dose: 8 mg IVP over 1 minute(s), Site: #1 right AC. Medication Ordered: Zofran IV 8 mg (NOW). Given 13:00 01/17/2017 Syeda Thompson R.N. Medication Administered: TORADOL [IVP], Dose: 30 mg IVP over 1 minute(s), Site: #1 right AC. Medication Ordered: Toradol IV 30 mg (NOW). Given 15:37 01/17/2017 Syeda Thompson R.N. Medication Administered: LEVOFLOXACIN [PO], Dose: 500 mg PO. Medication Ordered: Levofloxacin PO 500 mg (NOW).
== END 2017-01-17 15:45 | disposition home or self-care (01) ==
LOC: ED SRH 12:23
DX: N20.1 Calculus of ureter (principal); E78.5 Hyperlipidemia, unspecified; Z79.899 Other long term (current) drug therapy; Z88.0 Allergy status to penicillin
CPT/HCPCS: 90004; 90100; 90469; 90627; 91227; 91228; 95059